=== PATIENT | female | born 1960 | race Caucasian/White ===

== ENCOUNTER 2017-02-10 09:12 | Emergency (ER) | payer OTHER ==
[~2017-02-10] VITALS: Ht 152.4 cm; Wt 56.7 kg
[~2017-02-10 09:12] MED LIST: ALBUTEROL0.09 MG/A1 INH; ALENDRONATE SOD70 MG PO; ASPIR 8181 MG PO; BACTRIM DS 8001 TAB PO; CALTRATE 600 +1 TAB PO; CIPRO 500MG TA500 MG PO; CLARITIN10 MG PO; COZAAR 25MG TAB25 MG PO; DICLOFENAC SODI75 MG PO; DUONEB 3 MG/3 ML3 ML INH/SOL; FLUTICASON0.05 MG/Ac NASB; LISINOPRIL10 MG PO; MACROBID100 MG PO; METHADONE HYDROC5 MG PO; MEVACOR20 MG PO; NOVAPLUS V0.09 MG/Ac INH; OMEPRAZOLE D/R20 MG PO; PAROXETINE20 MG PO; PAXIL20 MG PO; PERCOCET 325 MG1 TAB PO; PREDNISONE 10MG10 MG PO; PREDNISONE 20MG20 MG PO; PREDNISONE10 MG PO; PROAIR HFA0.09 MG/Ac INH; PYRIDIUM100 MG PO; Robitussin PO; SINGULAIR10 MG PO; SPIRIVA 18 MCG18 MCG INH; SYMBICORT 160/41 PUF PO; [UNRECOGNIZED DRUG - CODE] PO
[2017-02-10 09:25] VITALS: BP 143/90
--- NOTE | 2017-02-10 10:32 | ED GENERAL ADULT ---
History of Present Illness General Chief Complaint: Hip Injury Stated Complaint: RIGHT SIDE HIP PAIN Source: patient, old records Exam Limitations: no limitations Vital Signs & Intake/Output Vital Signs & Intake/Output Vital Signs Date Time Temp Pulse Resp B/P B/P Pulse O2 O2 Flow FiO2 Mean Ox Delivery Rate 02/10 0925 96.3 94 20 143/90 96 Room Air Room Air Allergies Coded Allergies: Penicillins (Severe, ITCHY, HIVES 01/10/16) codeine (Mild, GI AND ITCHY 01/10/16) amoxicillin (From AUGMENTIN) (Mild, GI UPSET 01/10/16) clavulanic acid (From AUGMENTIN) (Mild, GI UPSET 01/10/16) Reconcile Medications Albuterol Sulfate (Albuterol Sulfate Hfa) 90 MCG HFA.AER.AD 2 PUFF INH Q4-6 PRN PRN SHORTNESS OF BREATH (Reported) 90 MCG PER PUFF Alendronate Sodium 70 MG TAB 1 TAB PO QW BONE (Reported) in the morning, at least 30 minutes before the first food, beverage, or medication of the day Aspirin (Ecotrin) 81 MG TABLET.DR 1 TAB PO DAILY HEART (Reported) Budesonide/Formoterol Fumara (Symbicort 160-4.5 Mcg Inhaler) 160 MCG/4.5 MCG PUF 2 PUF PO DAILY BREATHING (Reported) Calcium Carbonate/Vitamin D (Caltrate) 600 MG/200 IU TAB 1 TAB PO DAILY SUPPLEMENT (Reported) CHOLECALCIFEROL (VITAMIN D3) (Vitamin D3) 5,000 IU TAB 1 TAB PO DAILY SUPPLEMENT (Reported) Cyclobenzaprine HCl 5 MG TABLET 1-2 TAB PO TID PRN muscle relaxant may cause drowsiness Diclofenac Sodium 75 MG TABLET.DR 1 TAB PO BID ARHTRITIS (Reported) Fluticasone Propionate 0.05 MG/Actuation SPR 2 SPRAY [place] DAILY ALLERGIES ( Reported) Losartan (Cozaar) 25 MG TAB 1 TAB PO DAILY hypertension (Reported) Lovastatin (Mevacor) 20 MG TABLET 1 TAB PO DAILY CHOLESTROL (Reported) Methadone Hydrochloride 5 MG TAB 100 MG PO DAILY OPIOID DEPENDENCE (Reported) Montelukast Sodium (Singulair) 10 MG TAB 1 TAB PO AT BEDTIME COPD (Reported) Omeprazole 20 MG ECC 1 CAP PO DAILY GI (Reported) PAROXETINE HCL (Paxil) 20 MG TABLET 1 TAB PO DAILY ANXIETY (Reported) Prednisone 10 MG TAB 1 TAB PO AD COPD exacerbation On Take 01/13-01/15 60 MG 01/16-01/18 50 MG 01/19-01/21 40 MG 01/22-01/24 30 MG 01/25-01/27 20 MG 01/28-01/30 10 MG Then Stop Tiotropium [place] (Spiriva) 18 MCG CAP 1 CAP INH DAILY BREATHING PROBLEMS ( Reported) Triage Note: PT TO ED WITH C/O RIGHT HIP PAIN X 5-7 DAYS, LEFT WORK FOR THE PAIN. PT AMBULATORY INTO TRIAGE, PT DENIES FALL OR INJURY TO THE AREA. Triage Nurses Notes Reviewed? yes HPI: Patient is a 57-year-old female presents complaining of severe right hip pain. Patient was walking between 5 and 7 days ago and felt a pop in her right hip. Patient has been having pain since then. Pain is a sharp pain that worsens with internally rotating her right hip. Patient has been taking diclofenac which she takes chronically with no improvement. Patient is been resting for the past 2 days with no significant improvement. Patient denies pain radiating down her right lower extremity, weakness, decreased range of motion, rash, fevers. Past History Travel History Traveled to [place] past 21 day No Medical History Any Pertinent Medical History? 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 History of MRSA: Yes History of VRE: No History of CDIFF: No Pneumonia Vaccine: 08/02/11 Surgical History Surgical History: hysterectomy, N Psychosocial History Who do you live with Spouse Services at Home None What is your primary language Polish Tobacco Use: Current Daily Use Daily Tobacco Use Amount/Type: => 5 Cigarettes daily ETOH Use: denies use Illicit Drug Use: denies illicit drug use Family History Family History, If Any: FATHER FH: alcoholism GRANDMOTHER FH: breast cancer MOTHER FH: CHF (congestive heart failure) Relation not specified for: FH: CAD (coronary artery disease) Hx Contributory? No Review of Systems Review of Systems Constitutional: Denies: chills, fever. EENTM: Reports: no symptoms. Respiratory: Denies: cough, short of breath. Cardiovascular: Denies: chest pain. GI: Denies: abdominal pain. Musculoskeletal: Reports: see HPI. Skin: Denies: rash. Neurological/Psychological: Denies: headache, numbness, paresthesia. Hematologic/Endocrine: Denies: bruising, bleeding. Immunologic/Allergic: Denies: splenectomy. Physical Exam Physical Exam General Appearance: well developed/nourished, alert, awake Head: atraumatic, normal appearance Eyes: Bilateral: normal appearance. Ears, Nose, Throat: hearing grossly normal Neck: normal inspection, supple, full range of motion Respiratory: no respiratory distress Peripheral Pulses: 2+ tibialis posterior (R), 2+ dorsalis pedis (R) Gastrointestinal: soft, non-tender Back: normal inspection, normal range of motion, no vertebral tenderness Extremities: MILD RIGHT LATERAL HIP TENDERNESS. FULL RANGE OF MOTION ACTIVE AND PASSIVE. PAIN INCREASES WITH INTERNAL ROTATION OF RIGHT HIP. Neurologic/Psych: no motor/sensory deficits, awake, alert, oriented x 3, mild antalgic gait Skin: intact, normal color, warm/dry Core Measures ACS in differential dx? No CVA/TIA Diagnosis: No Severe Sepsis Present: No Septic Shock Present: No Progress Differential Diagnoses I considered the following diagnoses in my evaluation of the patient: Sprain, strain, fracture, dislocation, avascular necrosis, arthritis, septic joint Plan of Care: Current Medications Sig/Rocío Start time Last Medication Dose Stop Time Status Admin Tramadol HCl 50 MG ONCE ONE 02/10 1115 UNVr 02/10 (Ultram) 02/10 1116 1112 02/10/2017 11:18:42 AM: Results of x-rays discussed with patient. No acute neurovascular abnormalities on exam. Patient appears stable for conservative management, discharge and follow-up with her primary care provider. (BRENDA COVARRUBIAS,SHERRI) Diagnostic Imaging: Viewed by Me: Radiology Read. Discussed w/RAD: Radiology Read. Radiology Impression: PATIENT: KELLEY LYNN PRESENT AGE: 57 PATIENT ACCOUNT NO: [id number] : 60 LOCATION: [facility] ORDERING PHYSICIAN: SHERRI COVARRUBIAS SERVICE DATE: 02/10/17-1036 EXAM TYPE: RAD - XRY-HIP 2-3 VIEWS, RIGHT EXAMINATION: XR HIP, RIGHT CLINICAL INFORMATION: Severe right hip pain for 5 to 7 days. [place] a pop. COMPARISON: CT from 04/21/2015 TECHNIQUE: Two views of the right hip. FINDINGS: No evidence of acute fracture or dislocation. The femoral head articulates appropriately with its acetabulum. The visualized right pelvis is intact. There is a small calcification in the soft tissues superior to the greater trochanter, localized to the gluteal fat on the prior CT. An additional calcification is seen overlying the right iliac crest. This may represent an ingested pill. IMPRESSION : No acute fracture or malalignment. No significant degenerative changes. DICTATED BY: CAREN ORDOÑEZ MD DATE/TIME DICTATED:02/10/171102 SAFETY GLASS INSTALLER:HEAVEN DATE/TIME TRANSCRIBED:02/10/171102 CONFIDENTIAL, DO NOT COPY WITHOUT APPROPRIATE AUTHORIZATION. <Electronically signed in Other Vendor System> SIGNED BY: CAREN ORDOÑEZ MD 02/10/17 1110 Initial ED EKG: none Departure Departure Time of Disposition: 1118 Disposition: HOME OR SELF CARE Condition: Stable Clinical Impression Primary Impression: Hip strain Qualifiers: Encounter type: initial encounter Laterality: right Qualified Code: S76.011A - Strain of muscle, fascia and tendon of right hip, initial encounter Referrals: EMILEE MCMAHON APRN (PCP/Family) Additional Instructions: Rest, apply heat to the affected area for 20 minutes 4-5 times a day. Continue taking your Voltaren as previously directed. Follow-up with your primary care provider within one week for further evaluation. Call today for appointment. Return to the emergency department if numbness, weakness, or worsening of symptoms. Departure Forms: Customer Survey General Discharge Information Prescriptions: Current Visit Scripts Cyclobenzaprine HCl 1-2 TAB PO TID PRN muscle relaxant #15 TAB may cause drowsiness Critical Care Note Critical Care Note Critical Care Time: non-applicable
--- NOTE | 2017-02-10 11:10 | RADIOLOGY REPORT ---
EXAMINATION: XR HIP, RIGHT CLINICAL INFORMATION: Severe right hip pain for 5 to 7 days. [place] a pop. COMPARISON: CT from 04/21/2015 TECHNIQUE: Two views of the right hip. FINDINGS: No evidence of acute fracture or dislocation. The femoral head articulates appropriately with its acetabulum. The visualized right pelvis is intact. There is a small calcification in the soft tissues superior to the greater trochanter, localized to the gluteal fat on the prior CT. An additional calcification is seen overlying the right iliac crest. This may represent an ingested pill. IMPRESSION: No acute fracture or malalignment. No significant degenerative changes.
[2017-02-10] MEDS ORDERED: CYCLOBENZAPRINE5 M2 PO (11:20)
== END 2017-02-10 11:31 ==
LOC: ERH 09:12
DX: S76.011A Strain of muscle, fascia and tendon of right hip, initial encounter (principal); X58.XXXA Exposure to other specified factors, initial encounter; Y93.01 Activity, walking, marching and hiking; Y92.9 Unspecified place or not applicable
CPT/HCPCS: 73502-RT

== ENCOUNTER 2018-02-19 11:57 | Emergency (ER) | payer OTHER ==
[~2018-02-19] VITALS: Ht 152.4 cm; Wt 50.8 kg
[~2018-02-19 11:57] MED LIST changes: +CYCLOBENZAPRINE5 M2 PO; +MOBIC15 M1 PO; +PROAIR HFA8.5 GM INH; +ULTRAM50 M1 PO
[2018-02-19 12:07] VITALS: BP 118/72
--- NOTE | 2018-02-19 13:04 | ED DYSPNEA/ASTHMA COMPLAINT ---
History of Present Illness General Chief Complaint: General Adult Stated Complaint: "MY ASTHMA HAS BEEN ACTTING UP FOR TWO WEEKS" Source: patient, old records Exam Limitations: no limitations Vital Signs & Intake/Output Vital Signs & Intake/Output Vital Signs Date Time Temp Pulse Resp B/P B/P Pulse O2 O2 Flow FiO2 Mean Ox Delivery Rate 02/19 1207 98.2 91 20 118/72 94 Room Air Allergies Coded Allergies: Penicillins (Severe, ITCHY, HIVES 01/10/16) codeine (Mild, GI AND ITCHY 01/10/16) amoxicillin (From AUGMENTIN) (Mild, GI UPSET 01/10/16) clavulanic acid (From AUGMENTIN) (Mild, GI UPSET 01/10/16) Reconcile Medications Albuterol Sulfate (Albuterol Sulfate Hfa) 90 MCG HFA.AER.AD 2 PUFF INH Q4-6 PRN PRN SHORTNESS OF BREATH (Reported) 90 MCG PER PUFF Albuterol Sulfate (Proair Hfa) 90 MCG HFA.AER.AD 2 PUF INH Q4-6 PRN PRN WHEEZING Alendronate Sodium 70 MG TAB 1 TAB PO QW BONE (Reported) in the morning, at least 30 minutes before the first food, beverage, or medication of the day Aspirin (Ecotrin) 81 MG TABLET.DR 1 TAB PO DAILY HEART (Reported) Budesonide/Formoterol Fumara (Symbicort 160-4.5 Mcg Inhaler) 160 MCG/4.5 MCG PUF 2 PUF PO DAILY BREATHING (Reported) Budesonide/Formoterol Fumarate (Symbicort 160-4.5 Mcg Inhaler) 160 MCG-4.5 MCG/ ACTUATION HFA.AER.AD 2 PUF INH BID copd Calcium Carbonate/Vitamin D (Caltrate) 600 MG/200 IU TAB 1 TAB PO DAILY SUPPLEMENT (Reported) CHOLECALCIFEROL (VITAMIN D3) (Vitamin D3) 5,000 IU TAB 1 TAB PO DAILY SUPPLEMENT (Reported) Cyclobenzaprine HCl 5 MG TABLET 1-2 TAB PO TID PRN muscle relaxant may cause drowsiness Diclofenac Sodium 75 MG TABLET.DR 1 TAB PO BID ARHTRITIS (Reported) Fluticasone Propionate 0.05 MG/Actuation SPR 2 SPRAY [place] DAILY ALLERGIES ( Reported) Losartan (Cozaar) 25 MG TAB 1 TAB PO DAILY hypertension (Reported) Lovastatin (Mevacor) 20 MG TABLET 1 TAB PO DAILY CHOLESTROL (Reported) Meloxicam (Mobic) 15 MG TABLET 1 TAB PO DAILY PRN PAIN Meloxicam (Mobic) 15 MG TABLET 1 TAB PO DAILY KNEE SPRIAN Methadone Hydrochloride 5 MG TAB 100 MG PO DAILY OPIOID DEPENDENCE (Reported) Montelukast Sodium (Singulair) 10 MG TAB 1 TAB PO AT BEDTIME COPD (Reported) Omeprazole 20 MG ECC 1 CAP PO DAILY GI (Reported) PAROXETINE HCL (Paxil) 20 MG TABLET 1 TAB PO DAILY ANXIETY (Reported) Prednisone 20 MG TABLET 1 TAB PO BID bronchospasm Prednisone 10 MG TAB 1 TAB PO AD COPD exacerbation On Take 01/13-01/15 60 MG 01/16-01/18 50 MG 01/19-01/21 40 MG 01/22-01/24 30 MG 01/25-01/27 20 MG 01/28-01/30 10 MG Then Stop Tiotropium [place] (Spiriva) 18 MCG CAP 1 CAP INH DAILY BREATHING PROBLEMS ( Reported) Tramadol HCl (Ultram) 50 MG TABLET 1 TAB PO Q12 PAIN Triage Note: PT STATES HER ASTHMA HAS BEEN BAD FOR ABOUT 2 WEEKS. WENT TO SEE PMD AND RX SYMBICORT RENEWAL BUT IT HASN'T HELPED. Triage Nurses Notes Reviewed? yes Onset: Last week Duration: day(s):, continues in ED Timing: recent history Severity: moderate Activities at Onset: activity Prior Episodes/Possible Cause: frequent episodes Modifying Factors: Improves With: other (mdi). Worsens With: movement. Associated Symptoms: cough, wheezing LMP (ages 10-50): post menopausal : No Patient currently breastfeeds: No HPI: Several days prior to admission patient complains of nonproductive cough and exertional wheezing. She was prescribed Symbicort and accidentally threw it away. She denies fever chills nausea vomiting diarrhea abdominal pain chest pain headache dysuria rash bleeding. Past History Travel History Traveled to [place] past 21 day No Medical History Any Pertinent Medical History? 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 No Review of Systems Review of Systems Constitutional: Reports: no symptoms. EENTM: Reports: no symptoms. Respiratory: Reports: see HPI, cough, short of breath, wheezing. Cardiovascular: Reports: no symptoms. GI: Reports: no symptoms. Genitourinary: Reports: no symptoms. Musculoskeletal: Reports: no symptoms. Skin: Reports: no symptoms. Neurological/Psychological: Reports: no symptoms. Hematologic/Endocrine: Reports: no symptoms. Immunologic/Allergic: Reports: no symptoms. All Other Systems: Reviewed and Negative Physical Exam Physical Exam General Appearance: well developed/nourished, alert, awake, anxious, mild distress Head: atraumatic, normal appearance Eyes: Bilateral: normal appearance, PERRL, EOMI. Ears, Nose, Throat: normal pharynx, normal ENT inspection, hearing grossly normal Neck: normal inspection, supple, full range of motion, no midline tenderness Respiratory: chest non-tender, no respiratory distress, decreased breath sounds, wheezing Cardiovascular: regular rate/rhythm, normal peripheral pulses, norml femoral pulses equa Peripheral Pulses: 4+ carotid (R), 4+ carotid (L) Gastrointestinal: normal bowel sounds, soft, non-tender, no organomegaly Extremities: normal inspection, normal capillary refill, normal range of motion, no edema Neurologic/Psych: no motor/sensory deficits, awake, alert, oriented x 3, normal gait, normal mood/affect, 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 No CVA/TIA Diagnosis No Sepsis Present: No Sepsis Focused Exam Completed? No Progress Differential Diagnosis: asthma, bronchitis, COPD Plan of Care: Current Medications Sig/Rocío Start time Last Medication Dose Stop Time Status Admin Albuterol Sulfate 3 ML ONCE ONE 02/19 131 UNVr (Proventil) 02/19 131 Albuterol Sulfate 3 ML ONCE ONE 02/19 1315 UNVr (Proventil) 02/19 1316 Ipratropium [place] 2.5 ML ONCE ONE 02/19 1315 UNVr (Atrovent) 02/19 1316 Prednisone 60 MG ONCE ONE 02/19 1315 UNVr 02/19 1316 Initial ED EKG: none Departure Departure Time of Disposition: 1331 Disposition: HOME OR SELF CARE Condition: Stable Clinical Impression Primary Impression: Asthma exacerbation Referrals: Zhanna Guerra APRN (PCP/Family) Departure Forms: Customer Survey General Discharge Information Prescriptions: Current Visit Scripts Prednisone 1 TAB PO BID #10 TAB Ref 2 Budesonide/Formoterol Fumarate (Symbicort 160-4.5 Mcg Inhaler) 2 PUF INH BID #1 INHAL Ref 2 Critical Care Note Critical Care Note Critical Care Time: non-applicable
[2018-02-19] MEDS ORDERED: SYMBICORT 16010.2 GM INH (13:37)
[2018-02-19] MEDS ORDERED: PREDNISONE20 M1 PO (13:37)
== END 2018-02-19 13:50 ==
LOC: ERH 11:57
DX: J45.901 Unspecified asthma with (acute) exacerbation (principal); Z87.891 Personal history of nicotine dependence
CPT/HCPCS: 1263